=== PATIENT | male | born 1960 | race Caucasian/White ===

== ENCOUNTER → 2017-03-20 | Outpatient (CLI) | payer OTHER ==
[~2017-03-20] MED LIST: OMNIPAQUE 350 MG/ML, 100ML BOTTLE ONE
== END | disposition home or self-care (01) ==
LOC: RAD 15:27
PROVIDERS: ATTEND Physician Assistant
DX: K57.30 Diverticulosis of large intestine without perforation or abscess without bleeding (principal); M16.11 Unilateral primary osteoarthritis, right hip
CPT/HCPCS: 74177; Q9967

== ENCOUNTER 2017-06-18 18:34 | Emergency (ER) | payer OTHER ==
[~2017-06-18] VITALS: Ht 185.4 cm; Wt 101.6 kg
[2017-06-18 18:45] VITALS: BP 114/75
[2017-06-18 19:23] LABS: HEMATOCRIT 43.7 % (39.2-51.8); HEMOGLOBIN 15.3 g/dL (13.7-18.0); WHITE BLOOD COUNT 9.2 x10^3/uL (3.4-10)
[2017-06-18] MEDS ORDERED: AMOXICILLIN/CLAV 875-125MG TABLET PO ONE (20:00)
== END 2017-06-18 20:23 | disposition home or self-care (01) ==
LOC: ED 20:00
DX: K57.32 Diverticulitis of large intestine without perforation or abscess without bleeding (principal); Z79.891 Long term (current) use of opiate analgesic
CPT/HCPCS: 36415; 74176; 81003; 85025; 99285

== ENCOUNTER → 2017-12-31 | Outpatient (CLI) | payer OTHER | END | disposition home or self-care (01) | LOC: RAD 12:25 | PROVIDERS: ATTEND Internal Medicine Gastroenterology | DX: K57.30 Diverticulosis of large intestine without perforation or abscess without bleeding (principal) | CPT/HCPCS: 74177 ==

== ENCOUNTER 2018-08-06 22:26 | Emergency (ER) | payer OTHER ==
[~2018-08-06] VITALS: Ht 185.4 cm; Wt 102.0 kg
[2018-08-06 23:17] VITALS: BP 143/86
== END 2018-08-06 23:27 | disposition home or self-care (01) ==
LOC: ED 22:48
DX: J02.9 Acute pharyngitis, unspecified (principal); R05 Cough
CPT/HCPCS: 71046; 99283